=== PATIENT | male | born 1970 | race Caucasian/White ===

== ENCOUNTER 2024-12-14 05:16 | Emergency (ER) | payer BC, SELFPAY ==
[2024-12-14 05:19] VITALS: BP 104/70
[2024-12-14 06:03] VITALS: BMI 23.5
[2024-12-14 06:08] VITALS: BP 118/86
[2024-12-14 06:22] LABS: Hematocrit 42.3 % (39.0-52.0); Mean Corp Hgb Conc. 35.5 g/dL (33.0-37.0); Mean Corpuscular Hgb 36.7 pg (27.0-31.0); Mean Corpuscular Volume 103.4 fL (80.0-94.0); Red Blood Cell Count 4.09 10^6/uL (4.70-6.10); Red Cell Dist. Width 11.8 % (11.5-14.5); White Blood Cell Count 5.4 10^3/uL (4.8-10.8)
[2024-12-14 06:23] LABS: % Basophils 0.4 % (0-2); % Eosinophils 1.1 % (0-6); % Immature Granulocytes 0.4 % (0-0.5); % Lymphocytes 22.4 % (20.5-51.1); % Monocytes 8.2 % (1.7-9.3); % Neutrophils 67.5 % (42.2-75.2); Absolute Eosinophils 0.1 10^3/uL (0-0.7); Absolute Lymphocytes 1.2 10^3/uL (1.2-3.4); Absolute Monocytes 0.4 10^3/uL (0.1-0.6); Absolute Neutrophils 3.6 10^3/uL (1.4-6.5); Nucleated Red Blood Cells % 0 % (-)
[2024-12-14 06:30] LABS: ALT (SGPT) 80 U/L (0-50); AST (SGOT) 163 U/L (17-59); Albumin 4.8 g/dl (3.5-5.0); Alkaline Phosphatase 96 U/L (38-126); Blood Urea Nitrogen 8 mg/dl (9-20); Calcium 9.7 mg/dl (8.4-10.2); Chloride 85 mmol/L (98-107); Estimated Creatinine Clearance 109 ml/min; Glucose 146 mg/dl (70-99); Potassium 3.4 mmol/L (3.5-5.1); Sodium 135 mmol/L (135-145); Total Bilirubin 1.9 mg/dl (0.2-1.3); Total Protein 7.6 g/dl (6.3-8.2); eGFR > 60.00
[2024-12-14 06:36] LABS: Carbon Dioxide 36 mmol/L (22-30)
[2024-12-14] MEDS: ZOFRAN 4 MG IV (06:40)
[2024-12-14 06:41] LABS: Mean Platelet Volume 11.6 fL (7.4-10.4); Platelet Count 77 10^3/uL (130-400)
[2024-12-14 07:01] VITALS: BP 126/80
--- NOTE | 2024-12-14 07:02 | ED.GENMED ---
History of Present Illness
General
Chief Complaint: Abdominal Pain
Source: patient
Time Seen by Provider: 12/14/24 06:51
History of Present Illness
History of Present Illness:
73-[id number]-old male presents to the emergency room complaining of nausea, vomiting, diarrhea. Patient states the acute nausea vomiting diarrhea has been present for the past 3 days. He has very little oral intake. Preceding this the patient was
prescribed doxycycline for acne. After starting this he had some GI upset and was having some intermittent vomiting. He was prescribed Protonix which seemed to make it worse. He is since stopped the Protonix and doxycycline with improvement of
his nausea vomiting until the symptoms began. He denies any fever or chills. Patient does endorse daily alcohol use, 2-3 drinks on week nights and more on weekends. Evidently the patient has had elevated liver function tests on recent testing.
She had an ultrasound performed at [place] few days ago which showed some 'scarring and firmness' of the liver.
Past History
Past History
ED Past Medical History: None
ED Past Surgical History: None
Social History
Tobacco: Non-smoker
Personal:
Living: with family
Employment: Employed
Phy Exam
Physical Exam
Physical Exam:
General: Awake, Alert, Oriented X3. No acute distress.
Vitals: unremarkable
Head: Atraumatic
Eyes: Pupils equal, EOMI
Throat: Airway intact, no exudates
Neck: Trachea midline
Lungs: Clear and equal b/l
Heart: Regular rate, no murmurs
Abd: Soft, mild diffusely tender, No pulsatile mass
Neuro: Nonfocal
Skin: Warm, dry, no rash
Extremities: pulses equal b/l, no edema, telangiectasias
Course
Orders/Labs/Results
Orders:
Orders
12/14/24 05:24
ECG [Electrocardiogram (*1)] Urgent
Reason for Study: Abdominal Pain
12/14/24 05:25
EKG- Treatment ONCE
12/14/24 05:29
Comprehensive Metabolic Panel Urgent
12/14/24 05:30
Complete Blood Count/With Diff Urgent
12/14/24 06:39
Ondansetron Injectable [Zofran] 4 mg .ROUTE .STK-MED ONE
12/14/24 06:40
Ondansetron Injectable [Zofran] 4 mg IV NOW STA
Abnormal Lab Results
12/14/24 12/14/24
05:29 05:30
RBC 4.09 L 10^6/uL
(4.70-6.10)
MCV 103.4 H fL
(80.0-94.0)
MCH 36.7 H pg
(27.0-31.0)
Plt Count 77 L 10^3/uL
(130-400)
MPV 11.6 H fL
(7.4-10.4)
Potassium 3.4 L mmol/L
(3.5-5.1)
Chloride 85 L mmol/L
(98-107)
Carbon Dioxide 36 H mmol/L
(22-30)
BUN 8 L mg/dl
(9-20)
Glucose 146 H mg/dl
(70-99)
Total Bilirubin 1.9 H mg/dl
(0.2-1.3)
AST 163 H U/L
(17-59)
ALT 80 H U/L
(0-50)
12/14/24 05:30
12/14/24 05:29
Vital Signs
Initial and Last Documented VS:
Initial Vital Signs
Temp Pulse Resp BP
98.5 F 98 24 104/70
12/14/24 05:19 12/14/24 05:19 12/14/24 05:19 12/14/24 05:19
Last Documented Vital Signs
Temp Pulse Resp BP Pulse Ox
98.3 F 89 18 117/82 98
12/14/24 09:00 12/14/24 09:00 12/14/24 09:00 12/14/24 09:00 12/14/24 09:00
MDM/Problems Addressed
Differential Diagnosis Includes:
Viral gastroenteritis, adverse medication effect, alcoholic gastritis, electrolyte abnormality
MDM/Problems Addressed:
Patient presents with nausea vomiting, inability to tolerate oral intake. He was treated with IV fluids and Zofran with improvement. His labs show a modest elevation of his AST and ALT with a mild elevation of his bilirubin. In discussing these
findings with the patient he shared that he had a recent ultrasound and he states that showed some firmness or scarring of the liver. No evidence of stones. The overall presentation is suggestive of a patient with alcohol use disorder who now has
some nausea and vomiting. Given he has had imaging for elevated LFTs I do not believe this needs to be worked up any further here in the emergency room. Because he is tolerating oral intake I feel he stable for discharge home and we can send a
prescription for Zofran. I did ask the patient to speak with [facility]. However he declines.
*Critical Care Note
Total Time (30-74mins, 75-104mins- exclusive of procedures): Not Applicable
ED Attending Note
-
Portions of this chart may have been created with voice recognition software.� Occasional wrong word or��sound alike� substitutions may have occurred due to the inherent limitations of voice recognition software.
Discharge Plan
Departure
Patient Disposition: Home (Routine Discharge)
Date of Disposition: 12/14/24
Time of Disposition: 08:10
Patient with high blood pressure during this ER visit?: No
Condition: Good
Discharge Problem:
Nausea & vomiting, Thrombocytopenia, Elevated LFTs
Instructions: Nausea and Vomiting, Adult (DC)
Prescriptions:
New
ondansetron 4 mg tablet,disintegrating
4 mg PO TID PRN (Reason: nausea and vomiting) Qty: 12 0RF
No Action
hydrocodone-acetaminophen 5 MG/500 MG tablet
1 tab PO .Q4-6HPRN PRN (Reason: PAIN) Qty: 10 0RF
hydrocodone-acetaminophen 1 TABLET tablet
1 tab PO Q4HPRN PRN (Reason: pain) Qty: 12 0RF
Referrals:
Carley Montana, [Family Provider] -
Interventions
Interventions:
*Risk Screen - Suicide Last Done: 12/14/24 05:19
*General Assessment Last Done: 12/14/24 06:03
*Neglect/Abuse Screening Last Done: 12/14/24 05:19
*ED- Fall Risk Assessment Last Done: 12/14/24 06:03
*ED COVID-19 Vaccine History Last Done: 12/14/24 06:03
*Nursing Disposition Last Done: 12/14/24 09:00
XR-Wnvfiw-Lavclvzkkq Assessment Last Done: 12/14/24 06:03
Discharge Date and Time
Discharge Date/Time: 12/14/24 08:45
Print Language: GUINEAN
[2024-12-14 07:24] VITALS: BP 126/80
[2024-12-14 08:00] VITALS: BP 117/80
--- NOTE | 2024-12-14 08:40 | EDRN ---
Reviewed discharge instructions with patient. Verbalized understanding. Ambulated with steady gait to the lobby.
[2024-12-14 09:00] VITALS: BP 117/82
== END 2024-12-14 08:45 | disposition home or self-care (01) ==
LOC: EMR 05:16
PROVIDERS: Emergency Medicine; EMERGENCY PHYSICIAN Emergency Medicine; FAMILY PHYSICIAN Internal Medicine
DX: R11.2 Nausea with vomiting, unspecified (principal); R19.7 Diarrhea, unspecified; D69.6 Thrombocytopenia, unspecified; R94.5 Abnormal results of liver function studies; F10.90 Alcohol use, unspecified, uncomplicated
CPT/HCPCS: 99284; 96374; 80053; 85025; 93005

== ENCOUNTER 2025-06-15 13:11 | Emergency (ER) | payer BC, SELFPAY ==
[2025-06-15 13:11] VITALS: BMI 23.8
[2025-06-15 13:18] LABS: Glucose - Point of Care 115 mg/dl (70-99)
[2025-06-15 13:31] VITALS: BP 110/89
[2025-06-15 13:37] LABS: Hematocrit 38.7 % (39.0-52.0); Hemoglobin 13.4 g/dL (13.0-18.0); Mean Corp Hgb Conc. 34.6 g/dL (33.0-37.0); Mean Corpuscular Volume 105.7 fL (80.0-94.0); Red Cell Dist. Width 12.5 % (11.5-14.5)
--- NOTE | 2025-06-15 13:44 | ED.GENMED ---
History of Present Illness
General
Chief Complaint: Fainting/Passed Out
Source: patient
Exam Limitations: none
Time Seen by Provider: 06/15/25 13:31
Nursing documentation reviewed up to this point in time: agreed with
History of Present Illness
History of Present Illness:
55-year-old male who is in the Medical Manager waiting area for his who is undergoing AF ablation apparently randomly passed out felt dizzy then went down no head strike, last time this happened was 7 or 8 years ago when he was in [facility] he has
passed out since he was a child saw a specialist in [facility], unclear if he had a definitive diagnosis, does take a beta-grayson propranolol for anxiety induced tremor, has no chest pain today no shortness of breath no fever no dark or bloody
stools
Past History
Past History
ED Past Medical History: Other (Anxiety induced tremor on propranolol, also takes Propecia)
ED Past Surgical History: None
Social History
Tobacco: Non-smoker
Alcohol: None
Drug: None
Personal:
Living: with family
Employment: Employed
Phy Exam
Physical Exam
Physical Exam:
Physical Exam
General: no apparent distress, not acutely ill
Neck: No jaundice
Heart: s1/s2 regular rate and rhythm, no murmur. equal radial pulses.
Lungs: no acute respiratory distress. clear bilaterally
Abdomen: normal bowel sounds. not tender. no CVAT
Neuro: alert and oriented. no focal neurological deficits
Skin: no rash
Psychiatric: well kept. interactive and cooperative
Extremities: no edema. no calf tenderness
Scores
Kittson Syncope Rule
Conjestive Heart Failure History: No
Hematocrit <30%: No
EKG Abnormal (New changes, non NSR on EKG/Monitor): No
Shortness of Breath Symptoms: No
Systolic BP <90 mmHg at Triage: No
Patient is high risk for syncope: No
Course
Orders/Labs/Results
Orders:
Orders
06/15/25 13:22
Electrocardiogram (*1) Urgent
Reason for Study: Syncope
EKG- Treatment ONCE
06/15/25 13:23
Comprehensive Metabolic Panel Urgent
Troponin I Urgent
06/15/25 13:24
Complete Blood Count/With Diff Urgent
06/15/25 13:50
Orthostatic VS- Treatment ONCE
0.9% Sodium Chloride 1000 ml [Nss] 1,000 ml IV BOLUS
06/15/25 14:17
Echo 2D MMode Color/Doppler Urgent
Reason for Study: syncope without prodrome
Cardiology Consult: Jarod Gonzalez
Comment: ER bed 6, OK to go to card svcs
Abnormal Lab Results
06/15/25 06/15/25 06/15/25
13:17 13:23 13:24
WBC 2.9 L 10^3/uL
(4.8-10.8)
RBC 3.66 L 10^6/uL
(4.70-6.10)
Hct 38.7 L %
(39.0-52.0)
MCV 105.7 H fL
(80.0-94.0)
MCH 36.6 H pg
(27.0-31.0)
Plt Count 72 L 10^3/uL
(130-400)
MPV 10.8 H fL
(7.4-10.4)
Absolute Neuts (auto) 0.9 L* 10^3/uL
(1.4-6.5)
Neutrophils % 31.8 L %
(42.2-75.2)
Monocytes % 11.6 H %
(1.7-9.3)
Basophils % 2.4 H %
(0-2)
Carbon Dioxide 31 H mmol/L
(22-30)
BUN 5 L mg/dl
(9-20)
Glucose 118 H mg/dl
(70-99)
AST 234 H U/L
(17-59)
ALT 99 H U/L
(0-50)
POC Glucose 115 H mg/dl
(70-99)
06/15/25 13:24
06/15/25 13:23
Vital Signs
Initial and Last Documented VS:
Initial Vital Signs
Temp Pulse Resp BP Pulse Ox
98.1 F 64 20 110/89 98
06/15/25 13:31 06/15/25 13:31 06/15/25 13:31 06/15/25 13:31 06/15/25 13:31
Last Documented Vital Signs
Temp Pulse Resp BP Pulse Ox
98.1 F 78 10 110/75 98
06/15/25 13:31 06/15/25 15:15 06/15/25 15:15 06/15/25 15:00 06/15/25 15:00
MDM/Problems Addressed
Differential Diagnosis Includes:
Vasovagal, dehydration, arrhythmia
MDM/Problems Addressed:
Syncope
Chronic conditions affecting care:
Syncope
Acute Exacerbation and/or Progression of Chronic Illness:
Syncope
*Pulse Oximetry
SaO2: 98
Oxygen Mode of Delivery: Room air
Patient hypoxic: no
*Critical Care Note
Total Time (30-74mins, 75-104mins- exclusive of procedures): Not Applicable
Update Note
Update Note:
2:15 PM patient is orthostatic we will start saline hydration briefly reviewed with cardiology will be evaluated, get an echo, get him set up for an outpatient monitor
4:15 PM preliminary results have been reviewed with the patient by cardiology
ED Attending Note
-
Portions of this chart may have been created with voice recognition software.� Occasional wrong word or��sound alike� substitutions may have occurred due to the inherent limitations of voice recognition software.
Discharge Plan
Departure
Patient Disposition: Home (Routine Discharge)
Date of Disposition: 06/15/25
Time of Disposition: 16:30
Patient with high blood pressure during this ER visit?: No
Condition: Good
Discharge Problem:
Syncope and collapse
Instructions: Syncope (Fainting) (DC)
Prescriptions:
No Action
cetirizine [Zyrtec] 10 mg Tablet
10 mg PO DAILY
doxycycline hyclate 50 mg Capsule
50 mg PO DAILY
propranolol 80 mg Capsule,Extended Release 24 Hr
80 mg PO DAILY
finasteride [Propecia] 1 mg Tablet
1 mg PO DAILY
Referrals:
Jarod Gonzalez DO [Active, Cardiology] - 06/17/25 9:00 am
Referral Note: You are scheduled to have your heart monitor placed on 06/17/2025 at 9 AM in the [facility] office. You are then scheduled to see Dr. Gonzalez's nurse practitioner, Belén, at the [facility] office on 07/18/2025 at 7:40 AM. Please call
[phone] if you need to reschedule.
Carley Montana DO [Family Provider, Internal Medicine] - Follow up in 1 week
Activity Restrictions/Additional Instructions:
Drink plenty of fluids
Follow-up with your primary care provider and cardiology
Discussed your blood work with your primary care provider
Interventions
Interventions:
*Risk Screen - Suicide Last Done: 06/15/25 14:06
*Neglect/Abuse Screening Last Done: 06/15/25 14:06
*ED COVID-19 Vaccine History Last Done: 06/15/25 14:06
ED- Cardiac Assessment Last Done: 06/15/25 14:06
ED- Neurological Assessment Last Done: 06/15/25 14:06
Discharge Date and Time
Print Language: JORDANIAN
[2025-06-15 13:56] LABS: ALT (SGPT) 99 U/L (0-50); AST (SGOT) 234 U/L (17-59); Albumin 4.2 g/dl (3.5-5.0); Alkaline Phosphatase 73 U/L (38-126); Blood Urea Nitrogen 5 mg/dl (9-20); Calcium 8.9 mg/dl (8.4-10.2); Carbon Dioxide 31 mmol/L (22-30); Chloride 106 mmol/L (98-107); Estimated Creatinine Clearance > 125 ml/min; Glucose 118 mg/dl (70-99); Potassium 4.3 mmol/L (3.5-5.1); Sodium 145 mmol/L (135-145); Total Protein 6.8 g/dl (6.3-8.2); eGFR > 60.00
[2025-06-15 13:58] VITALS: BP 117/77
[2025-06-15 14:00] VITALS: BP 107/79
[2025-06-15 14:01] VITALS: BP 89/78
[2025-06-15] MEDS: NSS 1000 IV (14:02)
[2025-06-15 14:05] VITALS: BP 107/79; BP 117/77; BP 89/78; PULSE 69; PULSE 70; PULSE 82
[2025-06-15 14:23] LABS: Platelet Count 72 10^3/uL (130-400)
[2025-06-15 14:24] LABS: Nucleated Red Blood Cells % 0 % (-)
[2025-06-15 14:58] LABS: Troponin I < 0.012 ng/ml
[2025-06-15 15:00] VITALS: BP 110/75
--- NOTE | 2025-06-15 15:14 | CON.CAR ---
Addendum entered and electronically signed by Jarod Gonzalez DO 06/15/25 17:06:
I saw and examined the patient.
The Claim Benefit Specialist's note was reviewed and I agree with the note.
Comment:
Plan:
Symptoms and presentation appear consistent with vasovagal syncope. This is not a new diagnosis for him. We did discuss conservative measures with regards to proper hydration and avoiding prolonged sitting and standing. He was also provided some
patient education materials as well.
Urgent echo performed showing preserved LV function with bilateral mitral valve leaflet prolapse and at least moderate mitral regurgitation eccentric posteriorly directed jet.
We discussed outpatient follow-up in regards to this. This would not have caused his symptoms and we discussed serial echo monitoring for his valvular heart disease.
He is scheduled for an outpatient monitor to evaluate for arrhythmia or heart block.
We also discussed ultimate consideration for ischemic eval with stress testing after office follow-up visit.
And abnormal LFTs. He was also counseled on alcohol cessation and the potential cardiovascular effects of alcohol. He had stated that he may have some liver disease.
His LFT elevation and thrombocytopenia appear to be chronic and were present on prior blood work from 6 months ago.
Discussed with his sister who is at bedside as well as the emergency room.
HPI: -Patient came to the ER after an episode of syncope while visiting with his in the hospital today and cardiology is now consulted. Patient says that he awoke this morning in his usual state of health albeit a day earlier than usual in
order to get his to the hospital for her scheduled ablation with Dr. Alvarado as the first case of the day. After he dropped off his the patient went and got a breakfast sandwich and drank chocolate milk. He was feeling fine and had come
back to the hospital to sit in visit with his while she was in recovery and while the nurses were in front of him discussing some of her medical care he started to feel tingly and felt like he was angelo pass out followed by syncope that was
witnessed by nursing staff. An 'emergency medical response team for visitor' was called and patient initially had a difficult to detect pulse and BP, but awoke on his own without CPR or other invasive intervention and was transported to the ER.
Patient reports he has had syncope since he was a child, the last episode was about 6 years ago he was at a and was in a confucianist with frequent up and down and kneeling and that he began to feel tingly and similar to today had a sense of near
syncope and then awoke to the sound of the centrifugal station operator asking if there was a doctor in the confucianist. Patient also recalls that when he awakens in the night with the urge to urinate that when he stands up out of bed he feels lightheaded, but not ever
associated with syncope. Patient was evaluated at [facility] within the last year for elevated LFTs and had an ultrasound that was reportedly abnormal, his LFTs are elevated again today. He also has evidence of thrombocytopenia and neutropenia on his CBC
which does not appear to have been previously worked up. He was able to sit up in bed for physical exam without symptoms.
Original Note:
Consultation
Consultation Request
Date/Time Consultation Requested: 06/15/2025
Date/Time Consultation Performed: 06/15/2025
Requesting Provider: Dr. Duenas in the ER
Performing Provider: Dr. Gonzalez
Reason for Consultation: Syncope
Medical History
-
History of Present Illness:
Patient came to the ER after an episode of syncope while visiting with his in the hospital today and cardiology is now consulted. Patient says that he awoke this morning in his usual state of health albeit a day earlier than usual in order to
get his to the hospital for her scheduled ablation with Dr. Alvarado as the first case of the day. After he dropped off his the patient went and got a breakfast sandwich and drank chocolate milk. He was feeling fine and had come back to
the hospital to sit in visit with his while she was in recovery and while the nurses were in front of him discussing some of her medical care he started to feel tingly and felt like he was angelo pass out followed by syncope that was witnessed by
nursing staff. An 'emergency medical response team for visitor' was called and patient initially had a difficult to detect pulse and BP, but awoke on his own without CPR or other invasive intervention and was transported to the ER. Patient reports
he has had syncope since he was a child, the last episode was about 6 years ago he was at a and was in a confucianist with frequent up and down and kneeling and that he began to feel tingly and similar to today had a sense of near syncope and then
awoke to the sound of the centrifugal station operator asking if there was a doctor in the confucianist. Patient also recalls that when he awakens in the night with the urge to urinate that when he stands up out of bed he feels lightheaded, but not ever associated with
syncope. Patient was evaluated at [facility] within the last year for elevated LFTs and had an ultrasound that was reportedly abnormal, his LFTs are elevated again today. He also has evidence of thrombocytopenia and neutropenia on his CBC which does not
appear to have been previously worked up. He was able to sit up in bed for physical exam without symptoms.
PMH:
Elevated LFTs
Syncope
Past Medical History
Past Medical History: Other (In HPI)
Past Surgical History: None
Social History
Tobacco: Former Smoker (Light smoker in his early 20s)
Alcohol: Daily
Drug: None
Personal:
Living: With Family
Employment: Employed
Family History
Family History: Early CAD (Brother of an SC at age 52) and Cancer (Mother passed with lung cancer)
Allergies / Home Medications
Allergy/AdvReac Type Severity Reaction Status Date / Time
No Known Allergies Allergy Verified 12/14/24 05:24
�Medication �Instructions �Recorded �Confirmed �Type
cetirizine 10 mg tablet (Zyrtec) 10 mg PO DAILY 06/15/25 06/15/25 History
doxycycline hyclate 50 mg capsule 50 mg PO DAILY 06/15/25 06/15/25 History
finasteride 1 mg tablet (Propecia) 1 mg PO DAILY 06/15/25 06/15/25 History
propranolol 80 mg capsule,24 80 mg PO DAILY 06/15/25 06/15/25 History
hr,extended release
Review of Systems
-
History Source: Patient and Family (sister standing bedside)
All other systems: Negative unless noted
Physical Exam
Vital Signs
Temp Pulse Resp BP Pulse Ox
98.1 F 74 16 89/78 98
06/15/25 13:31 06/15/25 14:45 06/15/25 14:45 06/15/25 14:01 06/15/25 14:45
GEN: NAD. AAOx3
HEENT: EOMI, MMM, rhinophyma
LUNGS: RA. CTA B/L, no wheeze
CV: SR on tele. Reg, S1/S2, no murmur
ABD: soft, BS+, NT, ND
EXT: 2+ radial and PT pulses B/L. No edema B/L
NEURO: Gross non-focal
SKIN: No rash
Lab Results
06/15/25 13:24
06/15/25 13:23
Troponin I < 0.012 ng/ml 06/15/25 13:23
Impression / Plan
-
PCP: Dr. Montana
Card: None
Impression:
Presented to the ER with syncope 06/15/25
Syncope, likely vasovagal
Hypotension
Thrombocytopenia
Neutropenia
Elevated LFTs
Echo 06/15/25: Study pending
Plan:
-Patient came to the ER after an episode of syncope while visiting with his in the hospital today and cardiology is now consulted. Patient says that he awoke this morning in his usual state of health albeit a day earlier than usual in order to
get his to the hospital for her scheduled ablation with Dr. Alvarado as the first case of the day. After he dropped off his the patient went and got a breakfast sandwich and drank chocolate milk. He was feeling fine and had come back to
the hospital to sit in visit with his while she was in recovery and while the nurses were in front of him discussing some of her medical care he started to feel tingly and felt like he was angelo pass out followed by syncope that was witnessed by
nursing staff. An 'emergency medical response team for visitor' was called and patient initially had a difficult to detect pulse and BP, but awoke on his own without CPR or other invasive intervention and was transported to the ER. Patient reports
he has had syncope since he was a child, the last episode was about 6 years ago he was at a and was in a confucianist with frequent up and down and kneeling and that he began to feel tingly and similar to today had a sense of near syncope and then
awoke to the sound of the centrifugal station operator asking if there was a doctor in the confucianist. Patient also recalls that when he awakens in the night with the urge to urinate that when he stands up out of bed he feels lightheaded, but not ever associated with
syncope. Patient was evaluated at [facility] within the last year for elevated LFTs and had an ultrasound that was reportedly abnormal, his LFTs are elevated again today. He also has evidence of thrombocytopenia and neutropenia on his CBC which does not
appear to have been previously worked up. He was able to sit up in bed for physical exam without symptoms.
-ECG reviewed by me is SR with nonspecific inferior ST changes.
-Check echo, ordered by me and coordinated with echo lab staff to accommodate urgent study order from the ER
-Patient reports a lifelong history of what sounds like vasovagal syncope although when I mention vasovagal syncope he reports he has never heard that term before. Up-to-date patient information packets on syncope�the basics and syncope�beyond the
basics were provided to the patient for him to review. We also talked about trying to stay hydrated and increasing salt and fluid intake. We talked about taking time with position changes and isometric exercises that he can use if he is in a
situation with prolonged standing.
-Patient will need to follow-up with his PCP for his abnormal CBC and will also need to continue to follow-up for his abnormal LFTs which were reportedly evaluated with ultrasound that was also abnormal at [facility] earlier this year.
-Will arrange for patient to return to the office to have a 7-day CAM monitor applied and he will also need follow-up in the office and consider stress testing in the future.
== END 2025-06-15 16:39 | disposition home or self-care (01) ==
LOC: EMR 13:11
PROVIDERS: Emergency Medicine; EMERGENCY PHYSICIAN Emergency Medicine; FAMILY PHYSICIAN Internal Medicine
DX: R55 Syncope and collapse (principal); D69.6 Thrombocytopenia, unspecified; D70.9 Neutropenia, unspecified; R79.89 Other specified abnormal findings of blood chemistry; I34.1 Nonrheumatic mitral (valve) prolapse; I34.0 Nonrheumatic mitral (valve) insufficiency; G25.2 Other specified forms of tremor; Z87.891 Personal history of nicotine dependence; Z82.49 Family history of ischemic heart disease and other diseases of the circulatory system
CPT/HCPCS: 99284; 96360; 80053; 82962; 84484; 85025; 93005; 93306